=== PATIENT | male | born 1935 | race Caucasian/White ===

== ENCOUNTER 2018-04-21 08:41 | Inpatient (IN) | payer OTHER ==
[2018-04-21 09:08] LABS: ADD MAN DIFF? NO
[2018-04-21] MEDS: SOD CHLORIDE 0.9% 500 ML IV (09:08)
[2018-04-21 09:10] LABS: WHITE BLOOD COUNT 5.7 10^3/ul (4.8-10.8)
[2018-04-21 09:10] LABS: BASOPHIL # 0.1 10^3/ul (0.0-0.1); BASOPHILS % 0.9 % (0.0-2.0); EOSINOPHILS # 0.2 10^3/ul (0.0-0.5); EOSINOPHILS % 3.3 % (0.0-7.0); HEMATOCRIT 42.4 % (42.0-52.0); HEMOGLOBIN 14.5 g/dl (14.0-18.0); LYMPHOCYTES % 35.6 % (15.0-51.0); MEAN CORPUSCULAR HEMOGLOBIN 28.9 pg (29.0-33.0); MEAN CORPUSCULAR HGB CONC 34.2 g/dl (32.0-37.0); MEAN CORPUSCULAR VOLUME 84.5 fl (82.0-101.0); MEAN PLATELET VOLUME 11.8 fl (7.4-10.4); MONOCYTE # 0.5 10^3/ul (0.3-0.9); MONOCYTES % 8.6 % (0.0-11.0); NEUTROPHIL # 2.9 10^3/ul (1.6-7.5); NEUTROPHILS % 51.1 % (39.0-77.0); PLATELET COUNT 172 10^3/UL (140-415); RED BLOOD COUNT 5.02 10^6/ul (4.70-6.10); RED CELL DISTRIBUTION WIDTH 12.8 % (11.5-14.5)
[2018-04-21 09:30] LABS: ANION GAP 13 (8-16); BLOOD UREA NITROGEN 32 mg/dl (7-20); CALCIUM 9.7 mg/dl (8.4-10.2); CARBON DIOXIDE 29 mmol/L (21-31); CHLORIDE 104 mmol/L (97-110); CREATININE 1.97 mg/dl (0.61-1.24); GLUCOSE 108 mg/dl (70-220); POTASSIUM 3.7 mmol/L (3.5-5.1); SODIUM 142 mmol/L (135-144)
[2018-04-21 10:00] LABS: INR 0.98; PROTIME 13.1 Sec (11.9-14.9)
[2018-04-21 10:01] LABS: PARTIAL THROMBOPLASTIN TIME 33.8 Sec (25.0-35.0)
[2018-04-21] MEDS: ASPIRIN 81 MG TAB PO (10:03)
[2018-04-21] MEDS: METOPROLOL 25 MG TAB PO (10:03)
[2018-04-21] MEDS ORDERED: ACETAMINOPHEN 325 MG TAB PO (10:30)
[2018-04-21] MEDS ORDERED: ONDANSETRON 4 MG INJ IV (10:30)
[2018-04-21] MEDS ORDERED: NACL 0.9% 3 ML SYG IV (11:30)
[2018-04-21] MEDS: ATORVASTATIN 80 MG TAB PO (12:42)
[2018-04-21 13:13] LABS: HEMOGLOBIN A1C 5.7 % (0-5.9)
[2018-04-21 13:19] LABS: CHOLESTEROL 142 mg/dl (100-200)
[2018-04-21 13:19] LABS: CHOL/HDL RATIO 6.1 RATIO; HDL CHOLESTEROL 23 mg/dl (31-75); LDL CHOLESTEROL,CALCULATED 100 mg/dl; TRIGLYCERIDES 95 mg/dl (0-149)
[2018-04-21 13:20] LABS: ALANINE AMINOTRANSFERASE 18 IU/L (13-69); ALBUMIN 3.1 g/dl (3.3-4.9); ALKALINE PHOSPHATASE 74 IU/L (42-121); ANION GAP 10 (8-16); ASPARTATE AMINO TRANSFERASE 30 IU/L (15-46); BILIRUBIN,INDIRECT 0.5 mg/dl (0-1.1); BILIRUBIN,TOTAL 0.5 mg/dl (0.2-1.3); BLOOD UREA NITROGEN 31 mg/dl (7-20); CALCIUM 9.1 mg/dl (8.4-10.2); CARBON DIOXIDE 27 mmol/L (21-31); CHLORIDE 108 mmol/L (97-110); CREATININE 1.77 mg/dl (0.61-1.24); GLUCOSE 100 mg/dl (70-220); SODIUM 141 mmol/L (135-144); TOTAL PROTEIN 6.2 g/dl (6.1-8.1)
[2018-04-21 13:37] LABS: TROPONIN-I 0.184 ng/ml (0.000-0.120)
[2018-04-21 19:14] LABS: CREATINE KINASE 51 IU/L (23-200)
[2018-04-21 19:27] LABS: CK INDEX 4.1
[2018-04-21 19:28] LABS: TROPONIN-I 0.178 ng/ml (0.000-0.120)
[2018-04-22 05:29] LABS: ADD MAN DIFF? NO
[2018-04-22 05:35] LABS: BASOPHIL # 0.1 10^3/ul (0.0-0.1); EOSINOPHILS # 0.2 10^3/ul (0.0-0.5); EOSINOPHILS % 4.9 % (0.0-7.0); HEMOGLOBIN 13.8 g/dl (14.0-18.0); LYMPHOCYTES # 1.5 10^3/ul (0.8-2.9); LYMPHOCYTES % 30.9 % (15.0-51.0); MEAN CORPUSCULAR HEMOGLOBIN 28.9 pg (29.0-33.0); MEAN CORPUSCULAR HGB CONC 33.7 g/dl (32.0-37.0); MEAN PLATELET VOLUME 11.7 fl (7.4-10.4); MONOCYTE # 0.5 10^3/ul (0.3-0.9); MONOCYTES % 9.3 % (0.0-11.0); NEUTROPHIL # 2.6 10^3/ul (1.6-7.5); NEUTROPHILS % 53.5 % (39.0-77.0); PLATELET COUNT 160 10^3/UL (140-415); RED BLOOD COUNT 4.77 10^6/ul (4.70-6.10)
[2018-04-22 05:35] LABS: WHITE BLOOD COUNT 4.9 10^3/ul (4.8-10.8)
[2018-04-22 06:06] LABS: ALANINE AMINOTRANSFERASE 21 IU/L (13-69); ALBUMIN 2.9 g/dl (3.3-4.9); ALKALINE PHOSPHATASE 77 IU/L (42-121); ANION GAP 10 (8-16); ASPARTATE AMINO TRANSFERASE 27 IU/L (15-46); BILIRUBIN,INDIRECT 0.6 mg/dl (0-1.1); BILIRUBIN,TOTAL 0.6 mg/dl (0.2-1.3); BLOOD UREA NITROGEN 33 mg/dl (7-20); CALCIUM 9.5 mg/dl (8.4-10.2); CARBON DIOXIDE 29 mmol/L (21-31); CHLORIDE 108 mmol/L (97-110); CREATININE 1.96 mg/dl (0.61-1.24); GLUCOSE 110 mg/dl (70-220); POTASSIUM 4.2 mmol/L (3.5-5.1); SODIUM 143 mmol/L (135-144); TOTAL PROTEIN 6.1 g/dl (6.1-8.1)
[2018-04-22 06:16] LABS: FREE T4 (FREE THYROXINE) 1.34 ng/dl (0.85-1.93)
[2018-04-22 06:31] LABS: CREATINE KINASE 45 IU/L (23-200)
[2018-04-22 06:33] LABS: MAGNESIUM 1.9 mg/dl (1.7-2.5)
[2018-04-22 06:33] LABS: PHOSPHORUS 4.3 mg/dl (2.5-4.9)
[2018-04-22 06:42] LABS: CK INDEX 4.2; CK-MB 1.88 ng/ml (0.0-2.4)
[2018-04-22 06:45] LABS: TROPONIN-I 0.124 ng/ml (0.000-0.120)
[2018-04-22 08:08] LABS: B-TYPE NATRIURETIC PEPTIDE 5530 PG/ML (0-450)
[2018-04-22] MEDS ORDERED: DOCUSATE SODIUM 100 MG CAP PO (11:30)
[2018-04-22] MEDS ORDERED: HEPARIN 1000 UNITS/ML 10 ML INJ IV (11:30)
[2018-04-22] MEDS: HEPARIN 1000 UNITS/ML 10 ML INJ IV (11:52)
[2018-04-22 11:55] LABS: ADD MAN DIFF? NO
[2018-04-22] MEDS: HEPARIN 25000 UNITS/250 ML 250 ML IV (11:57)
[2018-04-22 11:58] LABS: WHITE BLOOD COUNT 6.2 10^3/ul (4.8-10.8)
[2018-04-22 11:58] LABS: BASOPHILS % 0.6 % (0.0-2.0); EOSINOPHILS # 0.2 10^3/ul (0.0-0.5); EOSINOPHILS % 3.1 % (0.0-7.0); HEMATOCRIT 45.5 % (42.0-52.0); HEMOGLOBIN 15.3 g/dl (14.0-18.0); LYMPHOCYTES # 1.4 10^3/ul (0.8-2.9); LYMPHOCYTES % 22.5 % (15.0-51.0); MEAN CORPUSCULAR HEMOGLOBIN 28.7 pg (29.0-33.0); MEAN CORPUSCULAR HGB CONC 33.6 g/dl (32.0-37.0); MEAN CORPUSCULAR VOLUME 85.4 fl (82.0-101.0); MEAN PLATELET VOLUME 11.5 fl (7.4-10.4); MONOCYTE # 0.5 10^3/ul (0.3-0.9); MONOCYTES % 8.6 % (0.0-11.0); NEUTROPHILS % 64.6 % (39.0-77.0); PLATELET COUNT 181 10^3/UL (140-415); RED BLOOD COUNT 5.33 10^6/ul (4.70-6.10); RED CELL DISTRIBUTION WIDTH 12.9 % (11.5-14.5)
[2018-04-22] MEDS: PANTOPRAZOLE (EC) 40 MG TAB PO (12:08)
[2018-04-22] MEDS: FUROSEMIDE 40 MG INJ IV (12:08)
[2018-04-22] MEDS: LEVOTHYROXINE 50 MCG TAB PO (12:09)
[2018-04-22] MEDS: METOPROLOL 25 MG TAB PO ×2 (12:09→21:10)
[2018-04-22] MEDS: AMLODIPINE 5 MG TAB PO (12:10)
[2018-04-22 12:16] LABS: ALANINE AMINOTRANSFERASE 13 IU/L (13-69); ALBUMIN 3.7 g/dl (3.3-4.9); ALBUMIN/GLOBULIN RATIO 1.12; ALKALINE PHOSPHATASE 94 IU/L (42-121); ANION GAP 15 (8-16); ASPARTATE AMINO TRANSFERASE 40 IU/L (15-46); BILIRUBIN,INDIRECT 0.6 mg/dl (0-1.1); BILIRUBIN,TOTAL 0.6 mg/dl (0.2-1.3); BLOOD UREA NITROGEN 32 mg/dl (7-20); CALCIUM 9.9 mg/dl (8.4-10.2); CARBON DIOXIDE 25 mmol/L (21-31); CHLORIDE 106 mmol/L (97-110); CREATININE 1.88 mg/dl (0.61-1.24); GLUCOSE 128 mg/dl (70-220); POTASSIUM 3.7 mmol/L (3.5-5.1); SODIUM 142 mmol/L (135-144)
[2018-04-22 12:17] LABS: INR 0.96; PROTIME 12.9 Sec (11.9-14.9)
[2018-04-22 12:18] LABS: PARTIAL THROMBOPLASTIN TIME 29.7 Sec (25.0-35.0)
[2018-04-22 12:27] LABS: TROPONIN-I 0.086 ng/ml (0.000-0.120)
[2018-04-22] MEDS: ONDANSETRON 4 MG INJ IV (12:55)
[2018-04-22] MEDS ORDERED: HEPARIN 5,000 UNIT/0.5 ML VIAL SC (14:00)
[2018-04-22] MEDS: SOD CHLORIDE 0.9% 1,000 ML IV (17:01)
[2018-04-22 19:25] LABS: CREATINE KINASE 69 IU/L (23-200)
[2018-04-22 19:27] LABS: PARTIAL THROMBOPLASTIN TIME 27.7 Sec (25.0-35.0)
[2018-04-22 19:35] LABS: CK INDEX 2.5; CK-MB 1.72 ng/ml (0.0-2.4); TROPONIN-I 0.067 ng/ml (0.000-0.120)
[2018-04-22] MEDS ORDERED: METOPROLOL 25 MG TAB PO (21:00)
[2018-04-22] MEDS: PAROXETINE 20 MG TAB PO (21:12)
[2018-04-23 06:15] LABS: ADD MAN DIFF? NO
[2018-04-23] MEDS: LEVOTHYROXINE 50 MCG TAB PO (06:55)
[2018-04-23 06:58] LABS: ANION GAP 10 (8-16); BLOOD UREA NITROGEN 33 mg/dl (7-20); CARBON DIOXIDE 29 mmol/L (21-31); CHLORIDE 106 mmol/L (97-110); CREATININE 1.97 mg/dl (0.61-1.24); GLUCOSE 106 mg/dl (70-220); SODIUM 141 mmol/L (135-144)
[2018-04-23] MEDS ORDERED: LEVOTHYROXINE 50 MCG TAB PO (07:00)
[2018-04-23 07:18] LABS: WHITE BLOOD COUNT 6.9 10^3/ul (4.8-10.8)
[2018-04-23 07:18] LABS: BASOPHILS % 0.4 % (0.0-2.0); EOSINOPHILS % 0.1 % (0.0-7.0); HEMATOCRIT 37.6 % (42.0-52.0); HEMOGLOBIN 12.9 g/dl (14.0-18.0); LYMPHOCYTES # 0.9 10^3/ul (0.8-2.9); MEAN CORPUSCULAR HEMOGLOBIN 29.4 pg (29.0-33.0); MEAN CORPUSCULAR HGB CONC 34.3 g/dl (32.0-37.0); MEAN CORPUSCULAR VOLUME 85.6 fl (82.0-101.0); MEAN PLATELET VOLUME 12.1 fl (7.4-10.4); MONOCYTE # 0.6 10^3/ul (0.3-0.9); MONOCYTES % 9.1 % (0.0-11.0); NEUTROPHIL # 5.3 10^3/ul (1.6-7.5); PLATELET COUNT 147 10^3/UL (140-415); RED BLOOD COUNT 4.39 10^6/ul (4.70-6.10); RED CELL DISTRIBUTION WIDTH 13.1 % (11.5-14.5)
[2018-04-23] MEDS: AMLODIPINE 5 MG TAB PO (09:00)
[2018-04-23] MEDS ORDERED: PANTOPRAZOLE (EC) 40 MG TAB PO (09:00)
[2018-04-23] MEDS ORDERED: PATIENT'S OWN MEDICATION PO (09:00)
[2018-04-23] MEDS ORDERED: AMLODIPINE 5 MG TAB PO (09:00)
[2018-04-23] MEDS: METOPROLOL 25 MG TAB PO ×2 (09:00→21:12)
[2018-04-23] MEDS: PANTOPRAZOLE (EC) 40 MG TAB PO (09:00)
[2018-04-23] MEDS ORDERED: FUROSEMIDE 20 MG TAB PO (09:00)
[2018-04-23] MEDS ORDERED: METOCLOPRAMIDE 5 MG TAB PO (09:30)
[2018-04-23] MEDS: SOD CHLORIDE 0.9% 500 ML IV (10:00)
[2018-04-23] MEDS: REGADENOSON 0.4 MG/5 ML SYG (13:18)
[2018-04-23] MEDS: APIXABAN 5 MG TABLET PO ×2 (21:00→21:11)
[2018-04-23] MEDS: PAROXETINE 20 MG TAB PO (21:11)
[2018-04-24 06:15] LABS: ADD MAN DIFF? NO
[2018-04-24 06:23] LABS: BASOPHILS % 0.7 % (0.0-2.0); EOSINOPHILS # 0.1 10^3/ul (0.0-0.5); EOSINOPHILS % 1.8 % (0.0-7.0); HEMATOCRIT 37.2 % (42.0-52.0); HEMOGLOBIN 12.7 g/dl (14.0-18.0); LYMPHOCYTES # 0.7 10^3/ul (0.8-2.9); LYMPHOCYTES % 15.1 % (15.0-51.0); MEAN CORPUSCULAR HEMOGLOBIN 29.3 pg (29.0-33.0); MEAN CORPUSCULAR HGB CONC 34.1 g/dl (32.0-37.0); MEAN CORPUSCULAR VOLUME 85.7 fl (82.0-101.0); MONOCYTE # 0.6 10^3/ul (0.3-0.9); MONOCYTES % 12.4 % (0.0-11.0); NEUTROPHIL # 3.1 10^3/ul (1.6-7.5); NEUTROPHILS % 69.1 % (39.0-77.0); PLATELET COUNT 135 10^3/UL (140-415); RED BLOOD COUNT 4.34 10^6/ul (4.70-6.10); RED CELL DISTRIBUTION WIDTH 12.7 % (11.5-14.5)
[2018-04-24 06:23] LABS: WHITE BLOOD COUNT 4.4 10^3/ul (4.8-10.8)
[2018-04-24] MEDS: LEVOTHYROXINE 50 MCG TAB PO (06:33)
[2018-04-24 06:47] LABS: ANION GAP 10 (8-16); BLOOD UREA NITROGEN 32 mg/dl (7-20); CALCIUM 8.9 mg/dl (8.4-10.2); CARBON DIOXIDE 27 mmol/L (21-31); CHLORIDE 107 mmol/L (97-110); GLUCOSE 100 mg/dl (70-220); POTASSIUM 3.6 mmol/L (3.5-5.1); SODIUM 140 mmol/L (135-144)
[2018-04-24] MEDS: PANTOPRAZOLE (EC) 40 MG TAB PO (08:29)
[2018-04-24] MEDS: APIXABAN 5 MG TABLET PO ×2 (08:30→20:53)
[2018-04-24] MEDS: METOPROLOL 25 MG TAB PO (08:30)
[2018-04-24] MEDS: AMLODIPINE 2.5 MG TAB PO (08:30)
[2018-04-24] MEDS: PAROXETINE 20 MG TAB PO (20:54)
[2018-04-25] MEDS: LEVOTHYROXINE 50 MCG TAB PO (05:42)
[2018-04-25] MEDS: AMLODIPINE 2.5 MG TAB PO (08:14)
[2018-04-25] MEDS: PANTOPRAZOLE (EC) 40 MG TAB PO (08:14)
[2018-04-25] MEDS: APIXABAN 5 MG TABLET PO ×2 (08:14→20:46)
[2018-04-25 16:23] LABS: IMMUNOGLOBULIN A 123 mg/dl (70-400); IMMUNOGLOBULIN G 663 mg/dl (700-1600)
[2018-04-25 16:51] LABS: PROSTATE SPECIFIC ANTIGEN < 0.1 ng/ml (0.0-4.0)
[2018-04-25 16:52] LABS: IMMUNOGLOBULIN M 640 mg/dl (40-230)
[2018-04-25] MEDS: PAROXETINE 20 MG TAB PO (20:46)
[2018-04-25] MEDS: hydrALAzine 20 MG INJ IV (21:26)
== END 2018-04-25 22:32 | disposition home or self-care (01) | DRG 309 ==
LOC: E/R 08:41 → TEL 10:29
DX: I48.0 Paroxysmal atrial fibrillation (principal); N17.9 Acute kidney failure, unspecified; C85.90 Non-Hodgkin lymphoma, unspecified, unspecified site; R55 Syncope and collapse; I12.9 Hypertensive chronic kidney disease with stage 1 through stage 4 chronic kidney disease, or unspecified chronic kidney disease; K21.9 Gastro-esophageal reflux disease without esophagitis; N18.9 Chronic kidney disease, unspecified; Z87.442 Personal history of urinary calculi; Z85.46 Personal history of malignant neoplasm of prostate; Z90.79 Acquired absence of other genital organ(s); Z87.891 Personal history of nicotine dependence; Z79.82 Long term (current) use of aspirin
CPT/HCPCS: 36415; 70450; 71045; 74176; 78452; 80048; 80053; 80061; 82550; 82553; 82784; 82962; 83036; 83735; 83880; 84100; 84153; 84154; 84403; 84439; 84443; 84484; 85025; 85610; 85730; 93005; 93017; 93306; 99285-25